=== PATIENT | female | born 1975 | race Caucasian/White ===

== ENCOUNTER → 2017-02-28 | Outpatient (CLI) | payer BC ==
[~2017-02-28] MED LIST: IBU600 MG PO; LEVEMIR100 U/ML SQ; NOVOLOG 100U100 U/M1 SQ; RIOMET500 MG/5 M PO
== END ==
LOC: SUN.DIA 13:06
DX: O24.419 Gestational diabetes mellitus in pregnancy, unspecified control (principal); Z3A.23 23 weeks gestation of pregnancy; Z71.3 Dietary counseling and surveillance
CPT/HCPCS: G0108

== ENCOUNTER → 2017-03-04 | Outpatient (CLI) | payer BC | LOC: SUN.DIA 08:45 | DX: O24.419 Gestational diabetes mellitus in pregnancy, unspecified control (principal); Z3A.23 23 weeks gestation of pregnancy; Z71.3 Dietary counseling and surveillance | CPT/HCPCS: G0108 ==

== ENCOUNTER → 2017-03-13 | Outpatient (CLI) | payer BC | LOC: SUN.DIA 09:25 | DX: O24.419 Gestational diabetes mellitus in pregnancy, unspecified control (principal); Z3A.24 24 weeks gestation of pregnancy; Z71.3 Dietary counseling and surveillance; Z68.27 Body mass index [BMI] 27.0-27.9, adult; Z79.4 Long term (current) use of insulin | CPT/HCPCS: G0108 ==

== ENCOUNTER → 2017-04-17 | Outpatient (CLI) | payer BC | LOC: SUN.DIA 08:52 | DX: O24.414 Gestational diabetes mellitus in pregnancy, insulin controlled (principal); Z3A.30 30 weeks gestation of pregnancy; Z71.3 Dietary counseling and surveillance ==

== ENCOUNTER → 2017-05-01 | Outpatient (CLI) | payer BC | LOC: SUN.DIA 12:57 | DX: O24.414 Gestational diabetes mellitus in pregnancy, insulin controlled (principal); Z3A.32 32 weeks gestation of pregnancy; Z71.3 Dietary counseling and surveillance | CPT/HCPCS: G0108 ==

== ENCOUNTER 2017-05-14 08:52 | Inpatient (IN) | payer BC ==
[~2017-05-14] VITALS: Ht 160 cm; Wt 78.2 kg
[2017-06-20 23:48] VITALS: BP 141/86; PULSE 81; TEMP 98.1
[2017-06-20] MEDS ORDERED: LEVEMIR100 U/ML SQ (23:57)
[2017-06-20] MEDS ORDERED: NOVOLOG 100U100 U/M1 SQ (23:58)
[2017-06-20] MEDS ORDERED: RIOMET500 MG/5 M PO (23:58)
[2017-06-21] VITALS (29 sets, daily range): BP systolic 113–159; BP diastolic 60–92; PULSE 65–106; TEMP 97.8–98.6
[2017-06-21 02:38] LABS: BASO # 0.1 (0.0-0.2); BASO % 0.5 % (0.0-2.0); EOS # 0.1 (0.0-0.7); EOS % 1.2 % (0-4.0); GRAN # 8.6 (1.4-6.5); GRAN % 72.3 % (42.2-75.2); LYMPH # 2.2 (1.2-3.4); LYMPH % 18.4 % (20.0-51.0); MEAN CELL VOLUME 91 fl (80.0-100.0); MEAN CORPUSCULAR HGB CONC 34 g/dl (33.0-37.0); MEAN PLATELET VOLUME 13.8 fl (7.4-10.4); MONO # 0.8 (0.1-0.6); MONO % 6.5 % (1.7-9.3); PLATELET COUNT 137 K/mm3 (130-400); RED BLOOD COUNT 3.82 M/mm3 (4.10-5.30); WHITE BLOOD COUNT 11.9 K/mm3 (4.8-10.8)
[2017-06-21 02:42] LABS: HEMATOCRIT 34.9 % (37.0-47.0); HEMOGLOBIN 11.9 g/dl (12.5-16.0); MEAN CORPUSCULAR HEMOGLOBIN 31 pg (27.0-31.0)
[2017-06-21 02:51] LABS: ADJUSTED CALCIUM 9.6 mg/dL (8.4-10.2); ALBUMIN 3.4 gm/dL (3.5-5.0); BILIRUBIN,TOTAL 0.2 mg/dL (0.0-1.0); CALCIUM 9.1 mg/dL (8.4-10.2); CREATININE, serum 0.99 mg/dL (0.52-1.25); POTASSIUM 3.7 mmol/L (3.4-5.0); TOTAL PROTEIN 6.6 gm/dL (6.4-8.2)
[2017-06-22 03:00] VITALS: BP 126/68; PULSE 86; TEMP 98.1
[2017-06-22 07:30] VITALS: BP 125/84; PULSE 73; TEMP 97.5
[2017-06-22] MEDS ORDERED: IBU600 MG PO (09:07)
== END 2017-06-22 17:30 | disposition home or self-care (01) | DRG 775 ==
LOC: LDR 06-21 → OB 06-21 09:00 → EDSTATUS 07-02 00:20 → LDRO 07-02 08:51
PROVIDERS: Obstetrics & Gynecology
PROC: 10E0XZZ Delivery of Products of Conception, External Approach (ICD-10-PCS; principal; 2017-06-21)
PROC: 0KQM0ZZ Repair Perineum Muscle, Open Approach (ICD-10-PCS; 2017-06-21)
PROC: 0UQKXZZ Repair Hymen, External Approach (ICD-10-PCS; 2017-06-21)
DX: O24.424 Gestational diabetes mellitus in childbirth, insulin controlled (principal); O34.211 Maternal care for low transverse scar from previous cesarean delivery; N85.8 Other specified noninflammatory disorders of uterus; O76 Abnormality in fetal heart rate and rhythm complicating labor and delivery; O70.1 Second degree perineal laceration during delivery; O69.81X0 Labor and delivery complicated by cord around neck, without compression, not applicable or unspecified; O70.0 First degree perineal laceration during delivery; Z3A.38 38 weeks gestation of pregnancy; Z37.0 Single live birth
CPT/HCPCS: J2590; J7120

== ENCOUNTER → 2017-05-20 | Outpatient (CLI) | payer BC | LOC: SUN.DIA 11:04 | DX: O24.414 Gestational diabetes mellitus in pregnancy, insulin controlled (principal); Z3A.34 34 weeks gestation of pregnancy; Z71.3 Dietary counseling and surveillance | CPT/HCPCS: G0108 ==

== ENCOUNTER → 2017-06-03 | Outpatient (CLI) | payer BC | LOC: SUN.DIA 10:43 | DX: O24.414 Gestational diabetes mellitus in pregnancy, insulin controlled (principal); Z3A.36 36 weeks gestation of pregnancy; Z71.3 Dietary counseling and surveillance | CPT/HCPCS: G0108 ==

== ENCOUNTER → 2017-06-10 | Outpatient (CLI) | payer BC | LOC: SUN.DIA 09:59 | DX: O24.414 Gestational diabetes mellitus in pregnancy, insulin controlled (principal); Z3A.37 37 weeks gestation of pregnancy; Z71.3 Dietary counseling and surveillance | CPT/HCPCS: G0108 ==

== ENCOUNTER → 2018-03-10 | Outpatient (CLI) | payer BC | LOC: SUN.DIA 09:33 | DX: R73.03 Prediabetes (principal) | CPT/HCPCS: G0108 ==

== ENCOUNTER → 2018-10-06 | Outpatient (CLI) | payer BC | LOC: SUN.DIA 09-07 11:15 | DX: R73.03 Prediabetes (principal) | CPT/HCPCS: G0108 ==